=== PATIENT | female | born 1995 | race Caucasian/White ===

== ENCOUNTER → 2023-10-13 19:23 | Outpatient (CLI) | payer OTHER, SELFPAY ==
--- NOTE | 2023-10-13 | DI.MRI.S_ITS ---
PROCEDURE: MR HIP RT WO/W CON INDICATIONS: Pain in right hip TECHNIQUE: Noncontrast coronal T1 spin echo and STIR through the bony pelvis. Coronal and axial T2 fast spin echo with fat saturation, axial T1 spin echo with fat saturation, sagittal T1 spin echo, and oblique axial T2 fast spin echo with fat saturation through the hip. Post-contrast axial, coronal, and sagittal spin echo with fat saturation through the hip. COMPARISON: None. FINDINGS: Image quality: Diagnostic Bones: Pelvic ring: Intact Femoral head and neck: No acute fracture. Ligamentum teres: Intact. Lumbar spine and sacrum: No acute finding. Tendons: Abductors: No full-thickness defect. There is minimal edema at insertion. Adductors and rectus abdominis: Possible mild degenerative changes at the pubic symphysis. IT band: Intact. Iliopsoas: Intact. No bursitis. Hamstrings: Intact. Rectus femoris: Intact. Joint: Joint space: No significant effusion. Labrum: Not well evaluated on this non-arthrographic study Questionable fluid cleft at the anterior superior aspect is seen. Cartilage: No significant defect or subchondral edema Soft tissues: Quadratus femoris: No edema or atrophy. Piriformis: Symmetric. Intrapelvic structures: Not well evaluated on this [facility] protocol study. IMPRESSION: No acute fracture or dislocation. There may be minimal edema at the abductor insertions and mild degenerative changes at the pubic symphysis, nonspecific, but sometimes seen with athletic pubalgia. The intrapelvic structures are not well evaluated on this [facility] protocol MRI. If there is concern for labral pathology, consider MR arthrogram. There is a questionable fluid cleft which may represent a small tear versus foramen at the anterior superior aspect. Dictated by: Sky Phelan M.D. on 10/14/2023 at 16:46 Approved by: Sky Phelan M.D. on 10/14/2023 at 16:53
== END ==
PROVIDERS: Referring Provider Physician Assistant; Visit Provider Physician Assistant
DX: M25.551 Pain in right hip (principal)
CPT/HCPCS: 73723; A9579

== ENCOUNTER → 2024-01-27 08:18 | Outpatient (CLI) | payer OTHER, SELFPAY ==
--- NOTE | 2024-01-27 08:19 | DI.MRI.S_ITS ---
PROCEDURE: MR PELVIS WO CON INDICATIONS: Right lower quadrant pain TECHNIQUE: Noncontrast coronal and axial T1 spin echo and STIR through the bony pelvis. COMPARISON: [facility], MR, MR HIP RT WO/W CON, 10/13/2023, 19:33. FINDINGS: Image quality: Excellent. Bones: Bone marrow of the pelvic ring, sacrum, and proximal femurs show normal signal throughout. No intraosseous lesions or fractures identified. No evidence of avascular necrosis of femoral head. The visualized lower lumbar spine appears normally aligned. Tendons: The gluteus medius and minimus tendons appear intact, without associated muscle atrophy. The nearby proximal iliotibial band also appears intact. The iliopsoas tendon appears intact, without adjacent bursal fluid collections or evidence for impingement syndrome. The origin of the hamstring tendon is intact at the ischial tuberosity. Soft tissues: Visualized muscles demonstrate normal bulk and internal signal. No joint effusions. No free pelvic fluid. Bladder wall thickness is normal. Genitourinary structures and bowel loops appear normal where visualized. No gross abnormal bowel wall thickening is seen in right lower quadrant abdomen. IMPRESSION: 1. No pelvic fracture or dislocation. No evidence of avascular necrosis of femoral heads. 2. No gross pelvic muscle or tendon signal abnormalities. No soft tissue mass or drainable fluid collection. 3. No peritoneal free fluid. No gross abnormality is seen in uterus and bilateral ovaries. No abnormal bowel wall thickening is seen in right lower quadrant abdomen. Dictated by: Samm Montilla M.D. on 01/27/2024 at 11:54 Approved by: Samm Montilla M.D. on 01/27/2024 at 12:15
== END ==
LOC: MRI 08:18
PROVIDERS: Referring Provider Surgery; Visit Provider Surgery
DX: R10.31 Right lower quadrant pain (principal); S76.291A Other injury of adductor muscle, fascia and tendon of right thigh, initial encounter; X58.XXXA Exposure to other specified factors, initial encounter
CPT/HCPCS: 72195

== ENCOUNTER → 2024-08-04 11:16 | Outpatient (CLI) | payer OTHER, SELFPAY ==
--- NOTE | 2024-08-04 11:18 | DI.RAD.S_ITS ---
PROCEDURE: XR LUMBAR SPINE MIN 4V INDICATIONS: LBP TECHNIQUE: 5 views of the lumbar spine were acquired, including bilateral oblique views. COMPARISON: None. FINDINGS: Bones: 5 nonrib-bearing vertebrae are present. There is normal bony alignment. No vertebral body compression fractures. No suspicious bony lesions. Soft tissues: Overlying bowel gas pattern is normal. No suspicious soft tissue calcifications. Oblique images: No pars defects. IMPRESSION: No acute bony abnormality. Dictated by: Barak Warren M.D. on 08/04/2024 at 16:23 Approved by: Barak Warren M.D. on 08/04/2024 at 16:24
== END ==
PROVIDERS: Referring Provider Physical Medicine & Rehabilitation; Visit Provider Physical Medicine & Rehabilitation
DX: M54.42 Lumbago with sciatica, left side (principal); M54.41 Lumbago with sciatica, right side
CPT/HCPCS: 72110

== ENCOUNTER 2024-08-31 10:19 | Outpatient (CLI) | payer OTHER, SELFPAY ==
[2024-08-31] VITALS (9 sets, daily range): BP systolic 97–111; BP diastolic 54–71; PULSE 54–75; RESP 14–19; TEMP 36.7; O2SAT 98–100
--- NOTE | 2024-08-31 10:20 | DI.RAD.S_ITS ---
PROCEDURE: PAIN SI JOINT INJECTION INDICATIONS: Right SI joint injection COMPARISON: None. FINDINGS/IMPRESSION: Fluoroscopic spot filming was performed to verify placement of spinal needles at the right SI level(s), as labeled on the films. Appropriate location(s) of the needle tip(s) was confirmed by injection of iodinated contrast. Dictated by: Lalitha Cunningham M.D. on 09/01/2024 at 22:44 Approved by: Lalitha Cunningham M.D. on 09/01/2024 at 22:44
[2024-08-31] MEDS: MIDAZOLAM 2 MG/2 ML VIAL IV (11:27)
[2024-08-31] MEDS: BETAMETHASONE 30 MG/5 ML MDV 12 MG IM (11:32)
[2024-08-31] MEDS: iopamidoL 15 ML VIAL 3 ML INJ (11:32)
[2024-08-31] MEDS: BUPIVACAINE 0.5% (PF) 10 ML VIAL 2 ML INJ (11:33)
--- NOTE | 2024-08-31 11:44 | PM.PROC.IR.1 ---
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 An informed consent was signed by the patient, witnessed by a nurse, and placed in the patient's chart. Additionally, other treatment options including modalities, medications, and physical therapy were reviewed with the patient. After review of previous anaesthesic history and IV conscious sedation the patient was deemed safe to proceed with today?s procedure with IV conscious sedation as ASA class II designation. Safety time-out was performed to confirm patient ID, procedure to be performed and site of procedure. IV sedation was accomplished with a combination of 2mg of Versed was administered by the RN after DO order, titrated to patient comfort during the course of the procedure while the patient remained responsive to all verbal commands In the prone position following sterile prep and drape of the pelvic region, the hyper lucency on in the inferior aspect of the sacroiliac joint was identified fluoroscopically the skin was anesthetized be a 25 gauge 1 eventual with approximately 2 cc of 1% lidocaine solution. At this point, a 22 gauge 3 in spinal needle was atraumatically introduced and advanced under fluoroscopic guidance into the inferior aspect of the right sacroiliac joint. Following negative aspiration, approximately 0.3cc of Isovue-300 was injected confirming intra-articular placement without vascular uptake. Radiographic data, including multiple fluoroscopic views of the pelvis, reveals a spinal needle in the sacroiliac joint hyper lucent zone. Subsequent view show flow contrast tear superiorly and inferiorly within the joint capsule without vascular intrathecal uptake. At this point a total of 1cc of 0.5% Marcaine was combined with 1cc of 6 mg of betamethasone was injected without incident. The procedure tolerated the procedure well without signs or symptoms of complications prior to transfer to the recovery area continued monitoring without incident. The patient was then transferred to the recovery area with a bur observed for an appropriate time after the injection. The patient reverted a vas score of 7 prior to the procedure and post-procedure vas of 1. POSTOP INSTRUCTIONS The patient was provided with a pain like to continue to record the patient's response to the target specific procedure prior to the patient's follow-up visit with the referring physician. Additionally, specific post injection care instructions and a contact number to our office were provided if concerns arise regarding the possible complications associated with procedure are suspected.
== END 2024-08-31 12:05 | disposition home or self-care (01) ==
PROVIDERS: Referring Provider Physical Medicine & Rehabilitation; Visit Provider Physical Medicine & Rehabilitation
DX: M46.1 Sacroiliitis, not elsewhere classified (principal); M53.3 Sacrococcygeal disorders, not elsewhere classified
CPT/HCPCS: 27096; 99152; J0702; J2250

== ENCOUNTER → 2025-03-19 14:10 | Outpatient (CLI) | payer OTHER, SELFPAY ==
--- NOTE | 2025-03-19 14:11 | DI.RAD.S_ITS ---
PROCEDURE: XR KNEE RT 3V INDICATIONS: Right knee pain TECHNIQUE: 3 views of the knee were acquired. COMPARISON: None. FINDINGS: Bones: No fractures or dislocations. No suspicious bony lesions. Soft tissues: No joint effusion. No suspicious soft tissue calcifications. IMPRESSION: No acute bony abnormality or significant effusion. Approved by: Gil Mijares M.D. on 03/19/2025 at 13:42
== END ==
PROVIDERS: Referring Provider Registered Nurse; Visit Provider Registered Nurse
DX: M25.561 Pain in right knee (principal)
CPT/HCPCS: 73562

== ENCOUNTER → 2025-06-07 15:18 | Outpatient (CLI) | payer OTHER, SELFPAY ==
--- NOTE | 2025-06-07 15:19 | DI.US.S_ITS ---
PROCEDURE: US PELVIC COMPLETE INDICATIONS: OVARIAN CYSTS ON MRI TECHNIQUE: Real-time scanning was performed of the pelvic organs, with image documentation. Additional endovaginal scanning was necessary due to incomplete visualization of the adnexal and endometrial structures by transabdominal scanning. COMPARISON: None. FINDINGS: Uterus measures 8.2 x 4.6 x 6.3 cm. Uterus is retroverted. Endometrial thickness is 4.3 mm. Homogeneous uterine echotexture. No fibroids detected. Right ovary measures 1.4 x 2.7 x 2.1 cm with calculated volume 4.3 mL. Left ovary measures 3.7 x 2.0 x 1.6 cm with calculated volume 6.2 mL. Normal appearing ovarian follicles bilaterally. No free fluid. IMPRESSION: Normal examination. We strive to produce accurate, complete, and clear reports of imaging services. To assist us in improving patient care, this report was composed using standard report templates and voice recognition software. Therefore, it may contain abnormal punctuation, insertions and/or omissions. Occasional wrong-word or sound-alike substitutions may occur. Though we review the report and make efforts to correct it, we do recommend that the report be read carefully in proper context to recognize any text inaccuracies. Dictated by: Rupesh Mccracken M.D. on 06/07/2025 at 17:32 Approved by: Rupesh Mccracken M.D. on 06/07/2025 at 17:35
== END ==
LOC: US 15:19
PROVIDERS: PCP Family Medicine; Referring Provider Family Medicine; Visit Provider Family Medicine
DX: Z87.42 Personal history of other diseases of the female genital tract (principal)
CPT/HCPCS: 76830; 76856